=== PATIENT | male | born 1945 | race Caucasian/White ===

== ENCOUNTER → 2019-11-06 | Outpatient (CLI) | payer MEDICARE, OTHER | LOC: COL.VAS 09:28 | DX: I35.0 Nonrheumatic aortic (valve) stenosis (principal); I51.7 Cardiomegaly; I34.0 Nonrheumatic mitral (valve) insufficiency ==

== ENCOUNTER → 2021-10-20 | Outpatient (CLI) | payer MEDICARE, OTHER | LOC: COL.VAS 09:42 | DX: I08.0 Rheumatic disorders of both mitral and aortic valves (principal) ==

== ENCOUNTER → 2021-10-26 | Outpatient (CLI) | payer MEDICARE, OTHER | LOC: COL.RAD 09:40 | DX: Z13.6 Encounter for screening for cardiovascular disorders (principal); Z87.891 Personal history of nicotine dependence ==

== ENCOUNTER 2022-01-22 12:09 | Outpatient (RCR) | payer MEDICARE, OTHER | END 2022-01-24 | disposition still patient (30) | LOC: COL.CR | DX: Z48.812 Encounter for surgical aftercare following surgery on the circulatory system (principal); Z95.2 Presence of prosthetic heart valve; I35.0 Nonrheumatic aortic (valve) stenosis ==

== ENCOUNTER 2022-02-22 14:41 | Outpatient (RCR) | payer MEDICARE, OTHER | END 2022-02-24 | disposition home or self-care (01) | LOC: COL.CR | DX: I35.0 Nonrheumatic aortic (valve) stenosis (principal) ==

== ENCOUNTER → 2022-04-26 | Outpatient (RCR) | payer MEDICARE, OTHER | END | disposition home or self-care (01) | LOC: COL.CR | DX: I35.0 Nonrheumatic aortic (valve) stenosis (principal) ==

== ENCOUNTER 2022-04-28 10:41 | Outpatient (RCR) | payer MEDICARE, OTHER | END 2022-04-30 15:03 | disposition still patient (30) | LOC: COL.CR 10:41 | DX: I35.0 Nonrheumatic aortic (valve) stenosis (principal) ==